=== PATIENT | female | born 1970 | race Caucasian/White ===

== ENCOUNTER 2018-05-29 19:08 | Emergency (ER) | payer SELFPAY ==
--- NOTE | 2018-05-29 19:52 | ED.PDOC ---
History of Present Illness - General Chief Complaint: Lower Extremity Injury Stated Complaint: left ankle pain Time Seen by Provider: 05/29/18 19:29 Source: patient Exam Limitations: no limitations - History of Present Illness Initial Comments: Yvrose Barber 48 y/o female stated came to ER to get checked stating she twisted her left ankle trying to avoid getting bitten by snake at [employer] parking lot.Had sharp pain on her left ankle with weight bearing.Denies any other injury. Timing/Duration: just prior to arrival Severity: moderate Location: extremities - left ankle Improving Factors: rest Worsening Factors: movement Associated Symptoms: other - see hpi Allergies/Adverse Reactions: Allergies Penicillins Allergy (Verified 08/16/14 19:41) Home Medications: Ambulatory Orders Ciprofloxacin [Cipro] 500 mg PO BID #20 tab 08/14/14 Potassium Chloride Tab [K-Dur] 20 meq PO DAILY #10 tab 08/14/14 Review of Systems - Review of Systems Skin: States: see HPI All other Systems: Reviewed and Negative, No Change from Baseline Past Medical History (General) - Patient Medical History Hx Seizures: No Hx Stroke: No Hx Dementia: No Hx Asthma: No Hx of COPD: Yes Hx Cardiac Disorders: No Hx Congestive Heart Failure: No Hx Pacemaker: No Hx Hypertension: No Hx Thyroid Disease: No Hx Diabetes: No Hx Gastroesophageal Reflux: No Hx Renal Disease: No Hx Cancer: No Hx of HIV: No Hx Hepatitis C: No Hx MRSA: No Surgical History: appendectomy, cholecystectomy, other - btl - Vaccination History Hx Tetanus, Diphtheria Vaccination: Yes Hx Influenza Vaccination: No Hx Pneumococcal Vaccination: No - Social History Hx Tobacco Use: Yes Hx Chewing Tobacco Use: No Hx Alcohol Use: Yes Hx Substance Use: No Hx Substance Use Treatment: No Hx Depression: No Hx Physical Abuse: No Hx Emotional Abuse: No Hx Suspected Abuse: No - Female History Patient : No Family Medical History - Family History Mother Living Status: Hx Family Cancer: Yes Physical Exam - Physical Exam General Appearance: Anxious, No apparent distress, Other - restless Eyes, Ears, Nose, Throat Exam: normal ENT inspection Neck: non-tender, full range of motion, supple Cardiovascular/Chest: normal peripheral pulses, regular rate, rhythm, no murmur Respiratory: lungs clear, normal breath sounds Gastrointestinal/Abdominal: non tender, soft Back Exam: normal inspection, no CVA tenderness Extremity: no pedal edema, no calf tenderness, other - no ankle swelling noted Neurologic: alert, oriented x 3 Skin Exam: warm/dry, normal color, other - no ecchymosis,no fang hunter or any bite hunter;no blood noted Progress - Progress Progress: 05/29/18 19:56 NO EXTERNAL SIGNS OF ANY SNAKE BITES ON HER LEFT ANKLE AREA 05/29/18 19:57 Declined X-ray of right ankle;stated she will just take Ibuprofen 05/29/18 20:01 05/29/18 20:02 Departure - Departure Clinical Impression: Sprain of left ankle Qualifiers: Encounter type: initial encounter Involved ligament of ankle: unspecified ligament Qualified Code(s): S93.402A - Sprain of unspecified ligament of left ankle, initial encounter Time of Disposition: 20:01 Disposition: Discharge to Home or Self Care Condition: Fair Departure Forms: ED Discharge - Pt. Copy, Patient Portal Self Enrollment Instructions: Ankle Sprain (DC) Home Medications: Ambulatory Orders Ciprofloxacin [Cipro] 500 mg PO BID #20 tab 08/14/14 Potassium Chloride Tab [K-Dur] 20 meq PO DAILY #10 tab 08/14/14 Additional Instructions: May take Ibuprofen 9over the counter 2-3 tablets 3 x a day for pain as needed; Return to emergency room as needed
[2018-05-29 20:08] VITALS: BP 141/91; TEMP 99.2; O2SAT 92
== END 2018-05-29 20:05 | disposition home or self-care (01) ==
LOC: ER 19:08
DX: S93.402A Sprain of unspecified ligament of left ankle, initial encounter (principal); X50.9XXA Other and unspecified overexertion or strenuous movements or postures, initial encounter; Y93.89 Activity, other specified; Y92.481 Parking lot as the place of occurrence of the external cause; J44.9 Chronic obstructive pulmonary disease, unspecified; Z87.891 Personal history of nicotine dependence; Z88.0 Allergy status to penicillin

== ENCOUNTER → 2018-07-27 | Outpatient (CLI) | payer OTHER ==
--- NOTE | 2018-07-27 16:19 | RAD ---
EXAM DESCRIPTION: Chest,2 Views CLINICAL HISTORY: TB SCREEN COMPARISON: None TECHNIQUE: PA/lateral FINDINGS: Abnormal density in the left pericardiac region suggests patchy lingular infiltrate or scarring. Heart size is normal with normal pulmonary vascularity. No pleural effusion or pneumothorax. Other areas of the lungs are clear with no acute-appearing consolidating infiltrate. Lateral view shows intact sternum and T-spine. On the lateral view, slight blunting of the posterior costophrenic angle probably the left suggests minimal pleural fluid or pleural scarring. Lungs appear mildly hyperexpanded on lateral view. IMPRESSION: Hyperexpanded lungs. Focal density in the lingula may be scarring. Electronically signed by: Josue Penaloza MD 07/27/2018 4:17 PM [employer]
== END ==
LOC: RAD 14:34
PROVIDERS: ATTEND Family Medicine
DX: Z11.1 Encounter for screening for respiratory tuberculosis (principal); J98.4 Other disorders of lung